=== PATIENT | male | born 1985 | race American Indian/Alaskan Native ===

== ENCOUNTER 2018-11-10 21:27 | Emergency (ER) | payer BC, OTHER ==
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
== END 2018-11-10 22:35 | disposition home or self-care (01) ==
LOC: DL.ED 21:27
DX: S63.651A Sprain of metacarpophalangeal joint of left index finger, initial encounter (principal); Z88.1 Allergy status to other antibiotic agents; Z88.2 Allergy status to sulfonamides; Y04.0XXA Assault by unarmed brawl or fight, initial encounter
CPT/HCPCS: 73130-LT; 99283-25